=== PATIENT | male | born 2000 | race Caucasian/White ===

== ENCOUNTER 2022-09-19 21:07 | Emergency (ER) | payer OTHER ==
[~2022-09-19] VITALS: Ht 180.3 cm; Wt 70.5 kg
[2022-09-19 22:51] VITALS: BP 128/71; PULSE 62; TEMP 98.7
== END 2022-09-19 22:52 | disposition home or self-care (01) ==
LOC: COL.ER 21:07
DX: R11.2 Nausea with vomiting, unspecified (principal)
CPT/HCPCS: J2405; J7030